=== PATIENT | male | born 1965 | race Native Hawaiian/Other Pacific Islander ===

== ENCOUNTER 2016-11-17 09:40 | Inpatient (IN) | payer MEDICAID ==
[2016-11-12 13:34] VITALS: BMI 22.6
[2016-11-17] MEDS ORDERED: ceFAZolin IV 1 gm in Dextrose 1 GM/50 ML BAG IVPB ONE (14:08)
[2016-11-17] MEDS ORDERED: Bupivacaine HCl 0.25% PF (10 ml) Inj ONE ×2 (14:08→14:49)
[2016-11-17] MEDS ORDERED: Lactated Ringer's 1,000 ML IV ONE (14:13)
[2016-11-17] MEDS ORDERED: Midazolam 2 MG/2 ML VIAL ONE (14:16)
[2016-11-17] MEDS ORDERED: Propofol 10 mg/ml Inj (20 ML) ONE (14:16)
[2016-11-17] MEDS ORDERED: Phenylephrine 10 mg/ml Inj ONE (15:01)
[2016-11-17] MEDS ORDERED: Oxycodone/Acetaminophen 5/325 mg Tab PO PRN (15:18)
[2016-11-17] MEDS ORDERED: Metoprolol 1 mg/ml Inj IVP PRN (15:20)
[2016-11-17] MEDS ORDERED: HYDROmorphone 0.5 mg/0.5 ml ISec IVP PRN ×2 (15:25→16:04)
--- NOTE | 2016-11-17 16:16 | CP.PCM.CON ---
<Sudha TAYLORKlarissa Gutierrez - Last Filed: 11/17/16 16:34> History of Present Illness - History of Present Illness History of Present Illness: Medicine consult note Patient is a 51 year old male with PMHx of hyperthyroidism, diabetes, and low vitamin D who is status post right incarcerated inguinal hernia repair. Patient states that he was experiencing scrotal swelling with walking for several months, but initially found that the swelling would reduce on its own. Patient states that more recently the swelling was increasing and was not reducible. Patient states his PMD, Dr. Noel, ordered testicular US which showed bowel hernia, and was referred for surgery. With regards to his hyperthyroidism, patient states he was losing weight prior to his diagnosis and that it took a long time to adjust his methimazole to the dose it is currently at. Patient states in the past he saw an location analyst but currently only follows with his PMD. Patient last saw his PMD in September and his methimazole was increased at that time. Patient denies palpitations, shortness of breath, sweating. Patient states his pain is well-controlled and localized to surgical site. 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 absent: Nausea - Genitourinary Genitourinary: absent: Dysuria - Musculoskeletal Musculoskeletal: absent: Numbness, Tingling - Integumentary Integumentary: absent: Pruritus, Rash - Neurological Neurological: absent: Dizziness, Weakness - Endocrine Endocrine: absent: Cold Intolorance, Excessive Sweating, Fatigue, Flushing, Palpitations Past Patient History - Past Medical History & Family History Past Medical History?: Yes - Past Social History Smoking Status: Light Smoker < 10 Cigarettes Daily - HEENT Hx HEENT Problems: Yes (GLASSES) Other/Comment: EXOPTHALMUS THYROID - ENDOCRINE/METABOLIC Hx Endocrine Disorders: Yes Hx Diabetes Mellitus Type 2: Yes Hx Hyperthyroidism: Yes - GASTROINTESTINAL Hx Gastrointestinal Disorders: Yes Other/Comment: RIGHT INGUINAL HERNIA - SURGICAL HISTORY Hx Surgeries: No - ANESTHESIA Hx Anesthesia: No Has any member of the family had a problem w/ anesthesia?: No Meds Allergies/Adverse Reactions: Allergies Allergy/AdvReac Type Severity Reaction Status Date / Time No Known Allergies Allergy Verified 11/12/16 13:32 - Medications Medications: Current Medications Docusate Sodium (Colace) 100 mg PO BID ANA Enoxaparin Sodium (Lovenox) 30 mg SC 1000,2200 ANA Hydromorphone HCl (Dilaudid) 0.5 mg IVP Q10M PRN PRN Reason: Pain, moderate (4-7) Stop: 11/17/16 17:40 Ketorolac Tromethamine (Toradol) 30 mg IVP Q6 PRN PRN Reason: pain 8-10 Stop: 11/22/16 15:19 Metoprolol Tartrate (Lopressor) 5 mg IVP ONCE PRN PRN Reason: Systolic Blood Pressure Ondansetron HCl (Zofran Inj) 4 mg IVP Q6 PRN PRN Reason: Nausea/Vomiting Oxycodone/Acetaminophen (Percocet 5/325 Mg Tab) 2 tab PO Q4H PRN PRN Reason: pain Stop: 11/20/16 15:19 Pantoprazole Sodium (Protonix Inj) 40 mg IVP DAILY [facility] Physical Exam - Constitutional Appears: Non-toxic, No Acute Distress - Head Exam Head Exam: ATRAUMATIC, NORMOCEPHALIC - Eye Exam Eye Exam: EOMI Additional comments: exophthalmos - ENT Exam ENT Exam: Mucous Membranes Dry Additional comments: front upper teeth missing - Respiratory Exam Respiratory Exam: Clear to Auscultation Bilateral, NORMAL BREATHING PATTERN. absent: Rales, Rhonchi, Wheezes - Cardiovascular Exam Cardiovascular Exam: +S1, +S2 - GI/Abdominal Exam GI & Abdominal Exam: Normal Bowel Sounds, Soft, Tenderness (RLQ) Additional comments: RLQ with tenderness on palpation around surgical site dressing C/D/I - Extremities Exam Extremities exam: Positive for: normal inspection. Negative for: calf tenderness, pedal edema Additional comments: SCDs on b/l lower extremities - Neurological Exam Neurological exam: Alert - Psychiatric Exam Psychiatric exam: Normal Affect - Skin Skin Exam: Dry, Warm Results - Vital Signs Recent Vital Signs: Last Vital Signs Temp 97.2 F L 11/17/16 15:12 Pulse 99 H 11/17/16 15:45 Resp 22 11/17/16 15:45 BP 169/89 H 11/17/16 15:45 Pulse Ox 99 11/17/16 15:45 - Labs Labs: Laboratory Results - last 24 hr 11/17/16 10:01 POC Glucose (mg/dL) 106 Assessment & Plan - Assessment and Plan (Free Text) Assessment: Hyperthyroidism Last thyroid studies done at [facility] 09/28/16: TSH <0.005, T4 15.8, T3 uptake 46, Free thyroxine index 7.[address] Noel, patient recently changed to methimazole 10mg PO BID. State patient never diagnosed with Grave's disease but may have Ethan' s. Requesting repeat of thyroid studies, we can change methimazole dose if necessary. Will check thyroid studies continue home medication methimazole 10mg PO BID Incarcerated hernia pt s/p surgical repair right hernia, POD #0 surgical management as per Dr. Dennis toradol 40mg IVP q6hprn percocet 2 tab q4h prn Diabetes Last Hgb A1c 09/28/16: 6.2 continue metformin 500mg HS accuchecks ACHS diabetic diet Hypovitaminosis D patient takes ergocalciferol 50,000u weekly, took last dose on Tuesday Prophylactic Measure protonix 40mg IVP daily lovenox 30mg SC Q10AM, 10pm Plan D/W Dr. Pascal <Shannan Pascal V - Last Filed: 11/17/16 22:27> Meds - Medications Medications: Current Medications Docusate Sodium (Colace) 100 mg PO BID [facility] Last Admin: 11/17/16 18:30 Dose: 100 mg Enoxaparin Sodium (Lovenox) 30 mg SC 1000,2200 [facility] Last Admin: 11/17/16 21:41 Dose: 30 mg Insulin Human Regular (Novolin R) 0 unit SC ACHS ANA PRN Reason: Protocol Last Admin: 11/17/16 21:36 Dose: Not Given Ketorolac Tromethamine (Toradol) 30 mg IVP Q6 PRN PRN Reason: pain 8-10 Stop: 11/22/16 15:19 Methimazole (Tapazole) 10 mg PO BID [facility] Last Admin: 11/17/16 18:30 Dose: 10 mg Metoprolol Tartrate (Lopressor) 5 mg IVP ONCE PRN PRN Reason: Systolic Blood Pressure Ondansetron HCl (Zofran Inj) 4 mg IVP Q6 PRN PRN Reason: Nausea/Vomiting Oxycodone/Acetaminophen (Percocet 5/325 Mg Tab) 2 tab PO Q4H PRN PRN Reason: pain Stop: 11/20/16 15:19 Pantoprazole Sodium (Protonix Inj) 40 mg IVP DAILY [facility] Results - Vital Signs Recent Vital Signs: Last Vital Signs Temp 98 F 11/17/16 18:25 Pulse 117 H 11/17/16 18:25 Resp 20 11/17/16 18:25 BP 163/80 H 11/17/16 18:25 Pulse Ox 95 11/17/16 18:25 - Labs Labs: Laboratory Results - last 24 hr 11/17/16 11/17/16 11/17/16 10:01 16:20 21:22 POC Glucose (mg/dL) 106 111 H 185 H Attending/Attestation - Attestation I have personally seen and examined this patient.: Yes I have fully participated in the care of the patient.: Yes I have reviewed all pertinent clinical information: Yes Notes (Text): Patient seen, examined and case discussed with day-time resident. Medicine consult for medical management, hx of hyperthyroidism, diabetes, vitamin D deficiency. Patient's PMD: Dr. Noel. Reviewed prior bloodwork with the resident. Assessment/Plan 1) Hx of Hyperthyroidism * [facility]: TSH <0.005, T4 15.8, T3 uptake 46, Free thyroxine index 7.3 * Resident spoke PMD, Dr. Noel, patient recently changed to methimazole 10mg PO BID about one month ago. Dr. Noel state patient never diagnosed with Grave's disease but may have Ethan's. Requesting repeat of thyroid studies, we can change methimazole dose if necessary. * Will check thyroid studies including TSH, Free T4, TSI, TBii, and anti- peroxidase Ab * continue home medication methimazole 10mg PO BID * Patient denies chest pain, denies palpitations, unintentional weight loss, no rapid hair loss 2) Diabetes mellitus, type 2 controlled * control * Last Hgb A1c 09/28/16: 6.2 * hold given patient had surgery for incarcerated hernia metformin 500mg HS * accuchecks ACHS * diabetic diet * Hgba1c, FLP in AM 3) Vitamin D deficiency * patient takes ergocalciferol 50,000IU 1x/ week, took last dose on Tuesday * Order Vitamin D level in AM 4) Incarcerated hernia * Surgery: Dr. Arnold primary * pt s/p surgical repair right hernia, POD #0 * management as per surgery including preoperative/intraoperative/postoperative * anticoagulation per surgery * pain management per surgery including toradol 30mg IVP q6hprn and percocet 2 tab q4h prn 5) Prophylactic Measure * protonix 40mg IVP daily * Anticoagulation per surgery, which is lovenox 30mg SC Q10AM, 10pm
[2016-11-17] MEDS: (Novolin R) Insulin Human Regular 100 units/ml vial SC SCH ×2 (17:00→21:36)
[2016-11-17] MEDS: Enoxaparin 30 mg Syringe SC SCH (21:41)
--- NOTE | 2016-11-18 02:55 | OP ---
PROCEDURE DATE: 11/17/2016 PREOPERATIVE DIAGNOSIS: Right inguinal scrotal hernia, incarcerated. POSTOPERATIVE DIAGNOSIS: Right inguinal scrotal hernia, incarcerated. PROCEDURES PERFORMED: 1. Repair of incarcerated right inguinal hernia. 2. Excision of large cord lipoma. 3. Repair of testicular artery. SURGEON: Dr. Dennis. TYPE OF ANESTHESIA: General. ESTIMATED BLOOD LOSS: 30 mL. POSTOPERATIVE CONDITION: Stable. INDICATIONS FOR SURGERY: This is a 51-year-old male with a large right inguinal scrotal hernia, incarcerated who now presents for an elective repair. GROSS FINDINGS: There was a large indirect hernia sac containing omentum in the scrotum. It was carefully taken off the spermatic cord causing some bleeding in testicular artery which was repaired. A large cord lipoma was also identified and removed. DESCRIPTION OF PROCEDURE: The patient was taken to the operating room. General anesthesia was administered. The right groin area was prepped and draped. The standard right inguinal incision was made carried down, carried caudad towards the scrotum in anticipation of delivering a large inguinal scrotal hernia sac. The external oblique aponeurosis was divided opening the external ring. The hernia sac was quickly identified and carefully dissected off of the kadi-scrotal tissues until the hernia sac was delivered into the wound along with testicle. The testicle was carefully taken off of the hernia sac replaced in the scrotum. Bleeding from the testicular artery was repaired with a 7-0 Prolene and Doppler was used to confirmed the flow. A large cord lipoma was excised. The hernia sac was inverted and using an extra large ProLoop hernia plug, the repair was accomplished with interrupted 0-Prolene sutures. The wound was irrigated with copious amounts of saline solution and closed in layers with Monocryl, heavy Monocryl and skin clips. The patient tolerated the procedure well. Returned to recovery room in stable condition. Devon Dennis MD
[2016-11-18] MEDS: (Novolin R) Insulin Human Regular 100 units/ml vial SC SCH ×4 (07:06→21:56)
[2016-11-18 07:27] LABS: BASO % 0.1 % (0.0-2.0); LYMPH # 0.7 K/uL (1.0-4.3); LYMPH % 6.9 % (20.0-40.0); MEAN CELL VOLUME 79.8 fL (80.0-94.0); MEAN CORPUSCULAR HEMOGLOBIN 26.7 pg (27.0-31.0); MEAN CORPUSCULAR HGB CONC 33.4 g/dL (33.0-37.0); MEAN PLATELET VOLUME 7.8 fL (7.2-11.7); MONO # 0.8 K/uL (0.0-0.8); MONO % 7.5 % (0.0-10.0); NRBC % 0.1 % (0.0-2.0); PLATELET COUNT 278 K/uL (130-400); RED CELL DISTRIBUTION WIDTH 13.2 % (11.5-14.5); WHITE BLOOD COUNT 10.7 K/uL (4.8-10.8)
[2016-11-18 07:42] LABS: CHLORIDE 103 mmol/L (98-107); POTASSIUM 4.5 mmol/L (3.6-5.2); SODIUM 141 mmol/L (132-148)
[2016-11-18 07:45] LABS: BLOOD UREA NITROGEN 13 mg/dL (9-20); CARBON DIOXIDE 25 mmol/L (22-30); CHOLESTEROL 194 mg/dL (0-199); GFR AFRICAN-AMERICAN > 60; GLUCOSE,RANDOM 132 mg/dL (75-110)
[2016-11-18 07:46] LABS: CALCIUM 9.2 mg/dl (8.6-10.4)
[2016-11-18 08:02] LABS: FREE T4 1.56 ng/dL (0.78-2.19)
[2016-11-18 08:16] LABS: THYROID STIMULATING HORMONE < 0.02 mIU/L (0.46-4.68)
[2016-11-18 08:52] LABS: EOSINOPHIL 1 % (0-4); NEUTROPHIL 82 % (50-75); TOTAL CELLS COUNTED 100
[2016-11-18] MEDS: Enoxaparin 30 mg Syringe SC SCH ×2 (09:02→22:14)
--- NOTE | 2016-11-18 19:25 | CP.PCM.PN ---
<Caleb Moncada - Last Filed: 11/18/16 19:19> Subjective - Date & Time of Evaluation Date of Evaluation: 11/18/16 Time of Evaluation: 19:19 - Subjective Subjective: PGY1 Note for Dr. Pascal HPI: Patient seen and examined at bedside. Pleasant man with no complaints at this time. Resting comfortably in bed watching TV. No pain around incision site. States he has diabetes that is well controlled with metformin. He also has hyperthyroidism that is controlled with Methimazole. Denies chest pain, SOB , F, N/V/D Objective - Vital Signs/Intake and Output Vital Signs (last 24 hours): Temp Pulse Resp BP Pulse Ox 98 F 97 H 18 152/71 H 94 L 11/18/16 15:35 11/18/16 15:35 11/18/16 15:35 11/18/16 15:35 11/18/16 15:35 Intake and Output: 11/18/16 11/19/16 18:59 06:59 Intake Total 760 Balance 760 - Medications Medications: Current Medications Docusate Sodium (Colace) 100 mg PO BID [facility] Last Admin: 11/18/16 17:39 Dose: 100 mg Enoxaparin Sodium (Lovenox) 30 mg SC 1000,2200 [facility] Last Admin: 11/18/16 09:02 Dose: 30 mg Insulin Human Regular (Novolin R) 0 unit SC ACHS [facility] PRN Reason: Protocol Last Admin: 11/18/16 16:49 Dose: Not Given Ketorolac Tromethamine (Toradol) 30 mg IVP Q6 PRN PRN Reason: pain 8-10 Stop: 11/22/16 15:19 Methimazole (Tapazole) 10 mg PO BID [facility] Last Admin: 11/18/16 17:40 Dose: 10 mg Metoprolol Tartrate (Lopressor) 5 mg IVP ONCE PRN PRN Reason: Systolic Blood Pressure Ondansetron HCl (Zofran Inj) 4 mg IVP Q6 PRN PRN Reason: Nausea/Vomiting Oxycodone/Acetaminophen (Percocet 5/325 Mg Tab) 2 tab PO Q4H PRN PRN Reason: pain Stop: 11/20/16 15:19 Pantoprazole Sodium (Protonix Inj) 40 mg IVP DAILY [facility] Last Admin: 11/18/16 11:30 Dose: 40 mg - Labs Labs: 11/18/16 06:57 11/18/16 06:57 - Constitutional Appears: Well, Non-toxic, No Acute Distress - Head Exam Head Exam: ATRAUMATIC, NORMAL INSPECTION, NORMOCEPHALIC - Eye Exam Eye Exam: EOMI - ENT Exam ENT Exam: Mucous Membranes Moist - Respiratory Exam Respiratory Exam: Clear to Ausculation Bilateral - Cardiovascular Exam Cardiovascular Exam: REGULAR RHYTHM. absent: Bradycardia, Tachycardia, Irregular Rhythm, Murmur - GI/Abdominal Exam GI & Abdominal Exam: Soft, Normal Bowel Sounds. absent: Distended, Tenderness Additional comments: R inguinla hernia dressing clean dry and intact - Neurological Exam Neurological Exam: Alert, Awake, Oriented x3 - Psychiatric Exam Psychiatric exam: Normal Affect, Normal Mood - Skin Skin Exam: Dry, Intact, Normal Color, Warm Assessment and Plan - Assessment and Plan (Free Text) Assessment: Hyperthyroidism TSH = <0.02 Free T4 = 1.56 Methimazole 10mg PO BID Incarcerated hernia repair right hernia, POD #1 surgical management as per Dr. Dennis toradol 40mg IVP q6hprn percocet 2 tab q4h prn Diabetes Hgb A1c 6.2 metformin 500mg HS accuchecks ACHS diabetic diet Hypovitaminosis D patient takes ergocalciferol 50,000u weekly, took last dose on Tuesday Prophylactic Measure protonix 40mg IVP daily lovenox 30mg SC Q10AM, 10pm <Shannan Pascal V - Last Filed: 11/19/16 05:13> Objective - Vital Signs/Intake and Output Vital Signs (last 24 hours): Temp Pulse Resp BP Pulse Ox 98.6 F 106 H 20 142/62 96 11/18/16 23:20 11/18/16 23:20 11/18/16 23:20 11/18/16 23:20 11/18/16 23:20 Intake and Output: 11/18/16 11/19/16 18:59 06:59 Intake Total 760 Balance 760 - Medications Medications: Current Medications Docusate Sodium (Colace) 100 mg PO BID [facility] Last Admin: 11/18/16 17:39 Dose: 100 mg Enoxaparin Sodium (Lovenox) 30 mg SC 1000,2200 [facility] Last Admin: 11/18/16 22:14 Dose: 30 mg Insulin Human Regular (Novolin R) 0 unit SC ACHS ANA PRN Reason: Protocol Last Admin: 11/18/16 21:56 Dose: Not Given Ketorolac Tromethamine (Toradol) 30 mg IVP Q6 PRN PRN Reason: pain 8-10 Stop: 11/22/16 15:19 Methimazole (Tapazole) 10 mg PO BID [facility] Last Admin: 11/18/16 17:40 Dose: 10 mg Metoprolol Tartrate (Lopressor) 5 mg IVP ONCE PRN PRN Reason: Systolic Blood Pressure Ondansetron HCl (Zofran Inj) 4 mg IVP Q6 PRN PRN Reason: Nausea/Vomiting Oxycodone/Acetaminophen (Percocet 5/325 Mg Tab) 2 tab PO Q4H PRN PRN Reason: pain Stop: 11/20/16 15:19 Pantoprazole Sodium (Protonix Inj) 40 mg IVP DAILY [facility] Last Admin: 11/18/16 11:30 Dose: 40 mg - Labs Labs: 11/18/16 06:57 11/18/16 06:57 Attending/Attestation - Attestation I have personally seen and examined this patient.: Yes I have fully participated in the care of the patient.: Yes I have reviewed all pertinent clinical information, including history, physical exam and plan: Yes Notes (Text): This is a late computer entry for 11/18/16. Patient seen, examined, and case discussed with day-time resident. Patient is pleasant reporting mild soreness over surgical site. Denies other acute complaints. Medicine team on consult to continue to follow patient. Assessment/Plan 1) Hx of Hyperthyroidism * Last thyroid studies done at [facility] 09/28/16: TSH <0.005, T4 15.8, T3 uptake 46, Free thyroxine index 7.3 * Resident spoke PMD, Dr. Noel, patient recently changed to methimazole 10mg PO BID about one month ago. Dr. Noel state patient never diagnosed with Grave's disease but may have Ethan's. Requesting repeat of thyroid studies, we can change methimazole dose if necessary. * TSH< 0.02; Free T4: 1.56-->has follow-up with PMD to monitor thyroid levels * Pending: TSI, TBii, and anti-peroxidase Ab * continue home medication methimazole 10mg PO BID * Patient denies chest pain, denies palpitations, unintentional weight loss, no rapid hair loss 2) Diabetes mellitus, type 2 controlled * Last Hgb A1c 09/28/16: 6.2 * hold given patient had surgery for incarcerated hernia metformin 500mg HS * accuchecks ACHS * diabetic diet * Hgba1c: 6.2 controlled * LDL: elevated-->emphasize diet modifications and possible statin in light of patient's diabetes 3) Vitamin D deficiency * patient takes ergocalciferol 50,000IU 1x/ week, took last dose on Tuesday * Order Vitamin D level in AM; pending 4) Incarcerated hernia * Surgery: Dr. Arnold primary * pt s/p surgical repair right hernia, POD #1 * management as per surgery including preoperative/intraoperative/postoperative * anticoagulation per surgery * pain management per surgery including toradol 30mg IVP q6hprn and percocet 2 tab q4h prn 5) Prophylactic Measure * protonix 40mg IVP daily * Anticoagulation per surgery, which is lovenox 30mg SC Q10AM, 10pm
[2016-11-19] MEDS: (Novolin R) Insulin Human Regular 100 units/ml vial SC SCH ×2 (07:18→11:48)
[2016-11-19 08:24] VITALS: BP 146/79; PULSE 72; RESP 18; TEMP 98.1; O2SAT 100
--- NOTE | 2016-11-19 09:26 | CP.PCM.PN ---
<Caleb Moncada - Last Filed: 11/19/16 11:54> Subjective - Date & Time of Evaluation Date of Evaluation: 11/19/16 Time of Evaluation: 09:23 - Subjective Subjective: PGY1 Note for HPI: Patient seen and examined at bedside. Doing well with no complaints at this time. Patient very comfortable and wants to go home. Patient was told by Dr. Dennis that he can go home this morning. Nurse will call him so he can go home. Patient is stable from a medical standpoint. Denies F,N/V/D, Chills, SOB or chest pain. Please follow up with your PMD for your thyroid studies. We are signing off. Thank you Objective - Vital Signs/Intake and Output Vital Signs (last 24 hours): Temp Pulse Resp BP Pulse Ox 98.1 F 72 18 146/79 100 11/19/16 07:45 11/19/16 07:45 11/19/16 07:45 11/19/16 07:45 11/19/16 07:45 - Medications Medications: Current Medications Docusate Sodium (Colace) 100 mg PO BID [facility] Last Admin: 11/18/16 17:39 Dose: 100 mg Enoxaparin Sodium (Lovenox) 30 mg SC 1000,2200 [facility] Last Admin: 11/18/16 22:14 Dose: 30 mg Insulin Human Regular (Novolin R) 0 unit SC ACHS [facility] PRN Reason: Protocol Last Admin: 11/19/16 07:18 Dose: Not Given Ketorolac Tromethamine (Toradol) 30 mg IVP Q6 PRN PRN Reason: pain 8-10 Stop: 11/22/16 15:19 Methimazole (Tapazole) 10 mg PO BID [facility] Last Admin: 11/18/16 17:40 Dose: 10 mg Metoprolol Tartrate (Lopressor) 5 mg IVP ONCE PRN PRN Reason: Systolic Blood Pressure Ondansetron HCl (Zofran Inj) 4 mg IVP Q6 PRN PRN Reason: Nausea/Vomiting Oxycodone/Acetaminophen (Percocet 5/325 Mg Tab) 2 tab PO Q4H PRN PRN Reason: pain Stop: 11/20/16 15:19 Pantoprazole Sodium (Protonix Inj) 40 mg IVP DAILY [facility] Last Admin: 11/18/16 11:30 Dose: 40 mg - Labs Labs: 11/18/16 06:57 11/18/16 06:57 - Constitutional Appears: Well, Non-toxic, No Acute Distress - Head Exam Head Exam: ATRAUMATIC, NORMAL INSPECTION, NORMOCEPHALIC - Eye Exam Eye Exam: EOMI - ENT Exam ENT Exam: Mucous Membranes Moist - Respiratory Exam Respiratory Exam: Clear to Ausculation Bilateral - Cardiovascular Exam Cardiovascular Exam: REGULAR RHYTHM - GI/Abdominal Exam GI & Abdominal Exam: Soft, Tenderness (minimal tenderness around incision site) , Normal Bowel Sounds - Neurological Exam Neurological Exam: Alert, Awake, Oriented x3 - Psychiatric Exam Psychiatric exam: Normal Affect, Normal Mood - Skin Skin Exam: Dry, Intact, Normal Color, Warm <Shannan Pascal V - Last Filed: 11/19/16 13:22> Objective - Vital Signs/Intake and Output Vital Signs (last 24 hours): Temp Pulse Resp BP Pulse Ox 98.1 F 72 18 146/79 100 11/19/16 07:45 11/19/16 07:45 11/19/16 07:45 11/19/16 07:45 11/19/16 07:45 Intake and Output: 11/19/16 11/19/16 06:59 18:59 Intake Total 300 Balance 300 - Labs Labs: 11/18/16 06:57 11/18/16 06:57 Attending/Attestation - Attestation I have personally seen and examined this patient.: Yes I have fully participated in the care of the patient.: Yes I have reviewed all pertinent clinical information, including history, physical exam and plan: Yes Notes (Text): Patient seen, examined, and case discussed with day-time resident. Patient is pleasant. Patient denies acute complaints. Patient is awaiting to be discharge. Patient to resume his home medications for hyperthyroidism, diabetes , and vitamin D deficiency. patient advised to follow-up with his PMD: Dr Todd regarding his thyroid studies and to provide a copy of his blood work to his primary care's office. Discharge per primary/surgery. Medicine team to sign off. Patient is medically stable from our perspective. Please re-consult PRN. Thank you. Assessment/Plan 1) Hx of Hyperthyroidism * Last thyroid studies done at [facility] 09/28/16: TSH <0.005, T4 15.8, T3 uptake 46, Free thyroxine index 7.3 * Resident spoke PMD, Dr. Noel, patient recently changed to methimazole 10mg PO BID about one month ago. Dr. Noel state patient never diagnosed with Grave's disease but may have Ethan's. Requesting repeat of thyroid studies, we can change methimazole dose if necessary. * TSH< 0.02; Free T4: 1.56-->has follow-up with PMD to monitor thyroid levels * Pending: TSI, TBii, and anti-peroxidase Ab * continue home medication methimazole 10mg PO BID * Patient denies chest pain, denies palpitations, unintentional weight loss, no rapid hair loss 2) Diabetes mellitus, type 2 controlled * Last Hgb A1c 09/28/16: 6.2 * hold given patient had surgery for incarcerated hernia metformin 500mg HS * accuchecks ACHS * diabetic diet * Hgba1c: 6.2 controlled * LDL: elevated-->emphasize diet modifications and possible statin in light of patient's diabetes 3) Vitamin D deficiency * patient takes ergocalciferol 50,000IU 1x/ week, took last dose on Tuesday * Order Vitamin D level in AM; pending 4) Incarcerated hernia * Surgery: Dr. Arnold primary * pt s/p surgical repair right hernia, POD #2 * management as per surgery including preoperative/intraoperative/postoperative * Discharge is per primary/surgery * anticoagulation per surgery * pain management per surgery including toradol 30mg IVP q6hprn and percocet 2 tab q4h prn 5) Prophylactic Measure * protonix 40mg IVP daily * Anticoagulation per surgery, which is lovenox 30mg SC Q10AM, 10pm
[2016-11-19] MEDS: Enoxaparin 30 mg Syringe SC SCH (10:02)
--- NOTE | 2016-11-19 11:40 | CP.PCM.PN ---
Subjective - Date & Time of Evaluation Date of Evaluation: 11/19/16 Time of Evaluation: 11:36 - Subjective Subjective: DISCUSSED MED REC WITH DR. FRAGOSO--PER NURSING STAFF PT HAS BEEN D/C BUT NO MED REC DONE BY NEITHER SURGERY NOR MEDICAL TEAMS. 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 FRAGOSO. COLACE AND ADVIL RX GIVEN. CONTINUE OTHER HOME MEDS USUAL. PER DR. FRAGOSO PT TO REMOVE DRESSING OVER THE WEEKEND OR TUESDAY AND F/ U WITH HIM IN THE OFFICE ON 11/26/16. DISCUSSED WITH THE D/C RN. NO FURTHER ORDERS. Objective - Vital Signs/Intake and Output Vital Signs (last 24 hours): Temp Pulse Resp BP Pulse Ox 98.1 F 72 18 146/79 100 11/19/16 07:45 11/19/16 07:45 11/19/16 07:45 11/19/16 07:45 11/19/16 07:45 - Medications Medications: Current Medications Docusate Sodium (Colace) 100 mg PO BID [facility] Last Admin: 11/19/16 10:03 Dose: 100 mg Enoxaparin Sodium (Lovenox) 30 mg SC 1000,2200 [facility] Last Admin: 11/19/16 10:02 Dose: 30 mg Insulin Human Regular (Novolin R) 0 unit SC ACHS [facility] PRN Reason: Protocol Last Admin: 11/19/16 07:18 Dose: Not Given Ketorolac Tromethamine (Toradol) 30 mg IVP Q6 PRN PRN Reason: pain 8-10 Stop: 11/22/16 15:19 Methimazole (Tapazole) 10 mg PO BID [facility] Last Admin: 11/19/16 10:03 Dose: 10 mg Metoprolol Tartrate (Lopressor) 5 mg IVP ONCE PRN PRN Reason: Systolic Blood Pressure Ondansetron HCl (Zofran Inj) 4 mg IVP Q6 PRN PRN Reason: Nausea/Vomiting Oxycodone/Acetaminophen (Percocet 5/325 Mg Tab) 2 tab PO Q4H PRN PRN Reason: pain Stop: 11/20/16 15:19 Pantoprazole Sodium (Protonix Inj) 40 mg IVP DAILY [facility] Last Admin: 11/19/16 10:03 Dose: 40 mg - Labs Labs: 11/18/16 06:57 11/18/16 06:57
--- NOTE | 2016-11-19 11:58 | CP.PCM.DIS ---
Provider - Provider Date of Admission: 11/17/16 15:19 Attending physician: Devon Fragoso MD Primary care physician: [facility] Hospital Course - Lab Results Lab Results: Most Recent Lab Values WBC 10.7 K/uL (4.8-10.8) 11/18/16 06:57 RBC 4.76 Mil/uL (4.40-5.90) 11/18/16 06:57 Hgb 12.7 g/dL (12.0-18.0) 11/18/16 06:57 Hct 38.0 % (35.0-51.0) 11/18/16 06:57 MCV 79.8 fL (80.0-94.0) L 11/18/16 06:57 MCH 26.7 pg (27.0-31.0) L 11/18/16 06:57 MCHC 33.4 g/dL (33.0-37.0) 11/18/16 06:57 RDW 13.2 % (11.5-14.5) 11/18/16 06:57 Plt Count 278 K/uL (130-400) 11/18/16 06:57 MPV 7.8 fL (7.2-11.7) 11/18/16 06:57 Neut % (Auto) 85.5 % (50.0-75.0) H 11/18/16 06:57 Lymph % (Auto) 6.9 % (20.0-40.0) L 11/18/16 06:57 [place] % (Auto) 7.5 % (0.0-10.0) 11/18/16 06:57 Eos % (Auto) 0.0 % (0.0-4.0) 11/18/16 06:57 Baso % (Auto) 0.1 % (0.0-2.0) 11/18/16 06:57 Neut # 9.2 K/uL (1.8-7.0) H 11/18/16 06:57 Lymph # 0.7 K/uL (1.0-4.3) L 11/18/16 06:57 [place] # 0.8 K/uL (0.0-0.8) 11/18/16 06:57 Eos # 0.0 K/uL (0.0-0.7) 11/18/16 06:57 Baso # 0.0 K/uL (0.0-0.2) 11/18/16 06:57 Neutrophils % (Manual) 82 % (50-75) H 11/18/16 06:57 Band Neutrophils % 2 % (0-2) 11/18/16 06:57 Lymphocytes % (Manual) 10 % (20-40) L 11/18/16 06:57 Monocytes % (Manual) 5 % (0-10) 11/18/16 06:57 Eosinophils % (Manual) 1 % (0-4) 11/18/16 06:57 Platelet Estimate Normal (NORMAL) 11/18/16 06:57 RBC Morphology Normal 11/18/16 06:57 Sodium 141 mmol/L (132-148) 11/18/16 06:57 Potassium 4.5 mmol/L (3.6-5.2) 11/18/16 06:57 Chloride 103 mmol/L (98-107) 11/18/16 06:57 Carbon Dioxide 25 mmol/L (22-30) 11/18/16 06:57 Anion Gap 18 (10-20) 11/18/16 06:57 BUN 13 mg/dL (9-20) 11/18/16 06:57 Creatinine 0.5 MG/DL (0.8-1.5) L 11/18/16 06:57 Est GFR ( Amer) > 60 11/18/16 06:57 Est GFR (Non-Af Amer) > 60 11/18/16 06:57 POC Glucose (mg/dL) 101 mg/dL (65-110) 11/19/16 11:27 Random Glucose 132 mg/dL (75-110) H 11/18/16 06:57 Hemoglobin A1c 6.2 % (4.2-6.5) 11/18/16 06:57 Calcium 9.2 mg/dl (8.6-10.4) 11/18/16 06:57 Triglycerides 110 mg/dL (0-149) 11/18/16 06:57 Cholesterol 194 mg/dL (0-199) 11/18/16 06:57 LDL Cholesterol Direct 131 mg/dL (0-129) H 11/18/16 06:57 HDL Cholesterol 48 mg/dL (30-70) 11/18/16 06:57 Free T4 1.56 ng/dL (0.78-2.19) 11/18/16 06:57 TSH 3rd Generation < 0.02 mIU/L (0.46-4.68) L 11/18/16 06:57 Discharge Exam - Head Exam Head Exam: ATRAUMATIC, NORMAL INSPECTION, NORMOCEPHALIC Discharge Plan - Discharge Medications Prescriptions: Docusate [Colace] 100 mg PO BID #60 cap Ibuprofen [Advil] 400 mg PO Q6 PRN #30 tablet PRN Reason: Pain, Moderate (4-7) - Follow Up Plan Condition: GOOD Disposition: HOME/ ROUTINE Instructions: Ibuprofen (By mouth), Laxative, Stool Softeners (By mouth), Open Herniorrhaphy (DC), Laparoscopic Herniorrhaphy (DC), Inguinal Hernia (DC) Additional Instructions: FOLLOW UP WITH DR. FRAGOSO IN HIS OFFICE NEXT TUESDAY (11/26/16)---CALL THE OFFICE TODAY TO MAKE YOUR APPOINTMENT. PER DR. FRAGOSO, YOU CAN REMOVE YOUR [place] DRESSING ON TUESDAY. ANY REDNESS TO THE SITE, PUS OR BLOOD OOZING, CALL DR. FRAGOSO IMMEDIATELY. CONTINUE TAKING YOUR HOME MEDICATIONS USUAL. FOR PAIN, DR. FRAGOSO SAID THAT YOU CAN TAKE ADVIL NEEDED---YOU HAVE BEEN PROVIDED WITH A PRESCRIPTION FOR THIS. YOU MAY ALSO CONTINUE TAKING COLACE, THE STOOL SOFTENER, TO HELP YOU GO TO THE BATHROOM. YOU SHOULD NOT STRAIN AFTER THE HERNIA SURGERY; THIS MEDICINE WILL HELP WITH THAT. FOR ANY OTHER QUESTIONS OR CONCERNS, CONTACT YOUR DOCTOR. Referrals: Devon Fragoso MD [Staff Provider] -
[2016-11-20 16:41] LABS: TBII 86.5 % (<=16.0)
[2016-11-22 19:10] LABS: TSI 540 % baseline (<140)
== END 2016-11-19 12:15 | disposition home or self-care (01) | DRG 161 ==
LOC: C.SDS 09:40 → C.9S 15:19 → C.6T 18:12
PROVIDERS: ADMIT Surgery; ATTEND Surgery
PROC: 0VBF0ZZ Excision of Right Spermatic Cord, Open Approach (ICD-10-PCS; 2016-11-17)
PROC: 0YQ50ZZ Repair Right Inguinal Region, Open Approach (ICD-10-PCS; principal; 2016-11-17 14:13)
DX: K40.30 Unilateral inguinal hernia, with obstruction, without gangrene, not specified as recurrent (principal); E05.90 Thyrotoxicosis, unspecified without thyrotoxic crisis or storm; E55.9 Vitamin D deficiency, unspecified; D17.6 Benign lipomatous neoplasm of spermatic cord; E11.9 Type 2 diabetes mellitus without complications; F17.210 Nicotine dependence, cigarettes, uncomplicated